=== PATIENT | female | born 1955 | race African-American/Black ===

== ENCOUNTER 2016-11-27 07:37 | Emergency (ER) | payer BC ==
[2016-11-27 07:45] VITALS: BMI 27.8
--- NOTE | 2016-11-27 07:47 | PDOC ---
Attending Attestation - Resident Resident Name: Tejas Garcia - ED Attending Attestation I have performed the following: I have examined & evaluated the patient, The case was reviewed & discussed with the resident, I agree w/resident's findings & plan, Exceptions are as noted - HPI HPI: 61 yo F history HTN, fibroids presents with L lower abdominal pain radiating to the low back intermittently for past two days, mostly occurs at night when she is trying to sleep. Pain is positional, worse with twisting and bending. She is currently pain free. Denies dysuria, hematuria, fever, chills. She notes that sometimes when she bends forward she gets the pain, but not at present. - Physicial Exam PE: GENERAL: Awake, alert, and fully oriented, in no acute distress HEAD: No signs of trauma EYES: PERRLA, EOMI, sclera anicteric, conjunctiva clear ENT: Auricles normal inspection, hearing grossly normal, nares patent, oropharynx clear without exudates. Moist mucosa NECK: Normal ROM, supple, no lymphadenopathy, JVD, or masses LUNGS: Breath sounds equal, clear to auscultation bilaterally. No wheezes, and no crackles HEART: Regular rate and rhythm, normal S1 and S2, no murmurs, rubs or gallops ABDOMEN: Soft, nontender, normoactive bowel sounds. No guarding, no rebound. No masses. No CVAT. EXTREMITIES: Normal range of motion, no edema. No clubbing or cyanosis. No cords, erythema, or tenderness NEUROLOGICAL: Cranial nerves II through XII grossly intact. Normal speech, normal gait SKIN: Warm, Dry, normal turgor, no rashes or lesions noted. SPINE: No midline tenderness. - Medical Decision Making DDx includes MSK pain, UTI, kidney stone. She is currently pain free, no advanced imaging indicated at present. Will send UA, then DC home.
--- NOTE | 2016-11-27 08:10 | PDOC ---
History of Present Illness - General Chief Complaint: Pain, Acute Stated Complaint: Left Flank Pain Time Seen by Provider: 11/27/16 07:46 History Source: Patient Exam Limitations: No Limitations - History of Present Illness Initial Comments: 11/27/16 08:03 Patient is a 61F with history of hypertension and fibroids here today complaining of lower left quadrant abdominal pain that radiates around the hip to the back for the past two days. The abdominal pain is intermittent, with about 10 total episodes of pain. The pain gets worse when trying to get up from laying down or sitting for long periods. It's relieved with hip flexion. The patient is currently in no pain. She denies nausea, vomiting, fevers and chills. She denies, dysuria, vaginal bleeding, diarrhea, constipation and history of kidney stones. Past History - Past Medical History Allergies/Adverse Reactions: Allergies Allergy/AdvReac Type Severity Reaction Status Date / Time Sulfa (Sulfonamide Allergy Verified 11/27/16 07:45 Antibiotics) Home Medications: Ambulatory Orders Hydrochlorothiazide [Hctz -] 12.5 mg PO DAILY 11/27/16 HTN: Yes - Psycho/Social/Smoking Cessation Hx Suicidal Ideation: No Smoking History: Never smoked Information on smoking cessation initiated: No Hx Alcohol Use: No Drug/Substance Use Hx: No Substance Use Type: None Review of Systems - Review of Systems Comments:: 11/27/16 08:19 GENERAL/CONSTITUTIONAL: No fever or chills. No weakness. HEAD, EYES, EARS, NOSE AND THROAT: No change in vision. No sore throat. CARDIOVASCULAR: No chest pain or shortness of breath RESPIRATORY: No cough, wheezing, or hemoptysis. GASTROINTESTINAL: No nausea, vomiting, diarrhea or constipation. GENITOURINARY: No dysuria, frequency, or change in urination. NEUROLOGIC: No headache, vertigo, loss of consciousness, or change in strength/ sensation. ALLERGIC/IMMUNOLOGIC: No hives or skin allergy. *Physical Exam - Vital Signs Last Vital Signs Temp Pulse Resp BP Pulse Ox 99.1 F 95 H 17 148/78 100 11/27/16 07:43 11/27/16 07:43 11/27/16 07:43 11/27/16 07:43 11/27/16 07:43 - Physical Exam Comments: 11/27/16 08:20 GENERAL: Awake, alert, and fully oriented, in no acute distress HEAD: No signs of trauma, normocephalic, atraumatic EYES: PERRLA, EOMI, sclera anicteric, conjunctiva clear ENT: Auricles normal inspection, hearing grossly normal, nares patent, oropharynx clear without exudates. Moist mucosa NECK: Normal ROM, supple, no lymphadenopathy, JVD, or masses LUNGS: No distress, speaks full sentences, clear to auscultation bilaterally HEART: Regular rate and rhythm, normal S1 and S2, no murmurs, rubs or gallops, peripheral pulses normal and equal bilaterally. ABDOMEN: Soft, nontender, normoactive bowel sounds. No guarding, no rebound. No masses EXTREMITIES: Normal inspection, Normal range of motion, no edema. No clubbing or cyanosis. NEUROLOGICAL: Cranial nerves II through XII grossly intact. Normal speech, normal gait, no focal sensorimotor deficits SKIN: Warm, Dry, normal turgor, no rashes or lesions noted. Medical Decision Making - Medical Decision Making 11/27/16 08:24 61F with history of HTN and fibroids here today with history of recent episodes of LLQ pain. Vital signs stable, currently pain free. Differential diagnosis includes, but is not limited to: musculoskeletal pain and nephrolithiasis. Will order UA to evaluate. No treatment needed at this moment. 11/27/16 16:36 UA shows positive LE, but <5 WBC and no symptoms. Will not treat. Discharged home with return precautions. Patient is alert, improved, and ambulatory on discharge. *DC/Admit/Observation/Transfer Diagnosis at time of Disposition: Abdominal pain Qualifiers: Abdominal location: left lower quadrant Qualified Code(s): R10.32 - Left lower quadrant pain - Discharge Dispostion Disposition: HOME Condition at time of disposition: Good Admit: No - Referrals Referrals: Blaze Banks MD [Primary Care Provider] - - Patient Instructions Printed Discharge Instructions: DI for Abdominal Pain-Adult
[2016-11-27 09:28] LABS: URINE APPEARANCE CLEAR; URINE BILIRUBIN NEGATIVE (NEGATIVE); URINE BLOOD 1+ (NEGATIVE); URINE COLOR LTYELLOW; URINE GLUCOSE (UA) NEGATIVE (NEGATIVE); URINE KETONE NEGATIVE (NEGATIVE); URINE NITRITE NEGATIVE (NEGATIVE); URINE PROTEIN NEGATIVE (NEGATIVE); URINE UROBILINOGEN NEGATIVE mg/dL (0.2-1.0)
[2016-11-27 09:47] LABS: URINE LEUK ESTERASE 2+ (NEGATIVE)
[2016-11-27 10:01] LABS: URINE RBC <1 /hpf (0-3); URINE WBC 5 /hpf (3-5)
[2016-11-27 10:35] VITALS: BP 127/86; PULSE 88; TEMP 98.7
== END 2016-11-27 10:35 | disposition home or self-care (01) ==
LOC: JER 07:37
DX: R10.32 Left lower quadrant pain (principal); I10 Essential (primary) hypertension
CPT/HCPCS: 81003; 81015; 99282-25